=== PATIENT | male | born 1960 | race Caucasian/White ===

== ENCOUNTER 2018-10-29 10:31 | Emergency (ER) | payer BC ==
[2018-10-29] MEDS ORDERED: Meclizine TAB* 12.5 MG PO ONE (10:59)
--- NOTE | 2018-10-29 11:09 | UC ---
Dizzy HPI HPI Summary: This patient is a 58-year-old male who presents to the urgent care with dizziness. The patient reports that he feels like the room is spinning in certain movements, especially when she is trying to get up from bed or turning to the left. He has been having these symptoms for the last 4 days. He had a headache yesterday but is resolved. He denies any chest pain shortness of breath or palpitations. He denies any blurred patient, decreased vision or visual changes. He denies any neck pain. He reports past medical history significant for hypertension. He has no other complaints. - History Of Current Complaint Chief Complaint: UCDizziness Stated Complaint: blood pressure issues Time Seen by Provider: 10/29/18 10:55 Hx Obtained From: Patient Onset/Duration: Sudden Onset Timing: Intermittent Episode Lasting - seconds to minutes Severity Initially: Mild Severity Currently: Mild Pain Intensity: 0 Character: Room Spinning Aggravating Factor(s): Position Change Associated Signs And Symptoms: Positive: Negative - Risk Factors CVA Risk Factor: Hypertension - Allergies/Home Medications Allergies/Adverse Reactions: Allergies Allergy/AdvReac Type Severity Reaction Status Date / Time No Known Allergies Allergy Verified 10/29/18 10:51 Home Medications: Home Medications Irbesartan 1 tab PO DAILY 10/29/18 [History Confirmed 10/29/18] PMH/Surg Hx/FS Hx/Imm Hx Previously Healthy: Yes Endocrine History: Other - Obesity Cardiovascular History: Hypertension - Surgical History Surgical History: None - Family History Known Family History: Positive: Hypertension - Social History Alcohol Use: Weekly Alcohol Amount: 4-5 beers 3-4 days per week Substance Use Type: Marijuana Substance Use Comment - Amount & Last Used: occ Smoking Status (MU): Former Smoker Type: Cigarettes Length of Time of Smoking/Using Tobacco: ~ 20 yrs Have You Smoked in the Last Year: No When Did the Patient Quit Smoking/Using Tobacco: 1994 Review of Systems All Other Systems Reviewed And Are Negative: Yes Constitutional: Positive: Negative Skin: Positive: Negative Eyes: Positive: Negative ENT: Positive: Negative Respiratory: Positive: Negative Cardiovascular: Positive: Negative Gastrointestinal: Positive: Negative Genitourinary: Positive: Negative Motor: Positive: Negative Neurovascular: Positive: Negative Musculoskeletal: Positive: Negative Neurological: Positive: Other - Dizziness Psychological: Positive: Negative Is Patient Immunocompromised?: No Physical Exam - Summary Physical Exam Summary: VITAL SIGNS: Reviewed. GENERAL: Patient is a well developed and nourished male who is sitting comfortably in the stretcher. Patient is not in any acute respiratory distress. HEAD AND FACE: No signs of trauma. No ecchymosis and hematomas in the head or face. No skull depressions. EYES: PERRLA, EOMI x 2, No injected conjunctiva, no nystagmus. No photophobia. No raccoon eyes. EARS: Hearing grossly intact. Ear canals and tympanic membranes are within normal limits. No discharge or secretions were observed. No hemotympanum. No carter sign. GCS: 15 MOUTH: Oropharynx within normal limits. NECK: Supple, trachea is midline, no adenopathy, no JVD, no carotid bruit, no c- spine tenderness, neck with full ROM. No meningeal signs, no Kernig's or brudzinskis signs. CHEST: Symmetric, no tenderness at palpation LUNGS: CTA B/L. CVS: RRR, S1 and S2 present, no murmurs appreciated ABDOMEN: Soft, NT, normal BS EXTREMITIES: FROM in all major joints, no edema, no cyanosis or clubbing. NEURO: Alert and oriented x 3. No acute neurological deficits. Speech is normal and follows commands. NIH score is 0 SKIN: Dry and warm Triage Information Reviewed: Yes Appearance: Well-Appearing Vital Signs: Initial Vital Signs Temp 99 F 10/29/18 10:48 Pulse 67 10/29/18 10:48 Resp 18 10/29/18 10:48 BP 154/81 10/29/18 10:48 Pulse Ox 100 10/29/18 10:48 Vital Signs Reviewed: Yes Diagnostics - Radiology Head CT Radiology Interpretation Completed By: Radiologist Summary of Radiographic Findings: IMPRESSION: No intracranial mass or hemorrhage is noted. Fluid in the left mastoid air cells which May represent mastoid sinusitis. - EKG Cardiac Rhythm: Sinus: Normal ST Segment: Normal Summary of EKG Findings: NSR 65 BPM, No STEMI. Dizzy Course/Dx - Course Course Of Treatment: In the urgent care course the patient was stable. The patient was given meclizine for benign positional vertigo. Head CT impression: IMPRESSION: No intracranial mass or hemorrhage is noted. Fluid in the left mastoid air cells which May represent mastoid sinusitis. Therefore since the NIH score is equal to 0, the head CT is negative and the symptoms have improved with meclizine the patient will be discharged home with follow-up with primary care physician. Patient will be given a prescription for meclizine. He was given instructions to return to the urgent care or to the emergency room he develops any weakness, tingling, numbness or any other symptoms. - Differential Dx/Diagnosis Provider Diagnosis: Benign positional vertigo Discharge - Sign-Out/Discharge Documenting (check all that apply): Patient Departure All imaging exams completed and their final reports reviewed: Yes - Discharge Plan Condition: Stable Disposition: HOME Prescriptions: Meclizine TAB* [Antivert 12.5 TAB*] 25 mg PO TID PRN #30 tab PRN Reason: Dizziness Patient Education Materials: Vertigo (DC) Referrals: Shahid Pruitt MD [Primary Care Provider] - Additional Instructions: Take medications as instructed Increase your fluid intake F/U with PCP in the next 2-3 days Return to the if symptoms wors - Billing Disposition and Condition Condition: STABLE Disposition: Home
[2018-10-29 11:47] VITALS: BP 159/81
== END 2018-10-29 11:55 | disposition home or self-care (01) ==
LOC: UCEAST 10:31
DX: R42 Dizziness and giddiness (principal); I10 Essential (primary) hypertension; E66.9 Obesity, unspecified; Z87.891 Personal history of nicotine dependence
CPT/HCPCS: 70450; 99213; A9270-GY; G0463

== ENCOUNTER 2019-03-05 13:11 | Emergency (ER) | payer BC ==
[2019-03-05 13:27] VITALS: BP 134/76
--- NOTE | 2019-03-05 13:51 | UC ---
Eye Complaint HPI - HPI Summary HPI Summary: captain cannery tender pt c/o irritation to lt eye. pt states there is some clear drainage at times. this itches from time to time as well. - History of Current Complaint Chief Complaint: UCEye Stated Complaint: EYE IRRITATION Time Seen by Provider: 03/05/19 13:50 Hx Obtained From: Patient Pain Intensity: 0 - Allergies/Home Medications Allergies/Adverse Reactions: Allergies Allergy/AdvReac Type Severity Reaction Status Date / Time No Known Allergies Allergy Verified 03/05/19 13:27 PMH/Surg Hx/FS Hx/Imm Hx Previously Healthy: Yes - Surgical History Surgical History: None - Family History Known Family History: Positive: Hypertension - Social History Alcohol Use: Weekly Alcohol Amount: 4-5 beers 3-4 days per week Substance Use Type: Marijuana Substance Use Comment - Amount & Last Used: few times a week Smoking Status (MU): Former Smoker Type: Cigarettes Length of Time of Smoking/Using Tobacco: ~ 20 yrs Have You Smoked in the Last Year: No When Did the Patient Quit Smoking/Using Tobacco: 1994 Physical Exam Vital Signs: Initial Vital Signs Temp 98.5 F 03/05/19 13:23 Pulse 58 03/05/19 13:23 Resp 18 03/05/19 13:23 BP 134/76 03/05/19 13:23 Pulse Ox 97 03/05/19 13:23 Discharge ED - Discharge Plan Referrals: Shahid Pruitt MD [Primary Care Provider] -
== END 2019-03-05 14:15 | disposition home or self-care (01) ==
LOC: UCEAST 13:11
DX: H57.9 Unspecified disorder of eye and adnexa (principal); Z87.891 Personal history of nicotine dependence
CPT/HCPCS: 99212; G0463